=== PATIENT | female | born 1970 | race American Indian/Alaskan Native ===

== ENCOUNTER 2022-02-12 11:39 | Day surgery (SDC) | payer BC, OTHER ==
[~2022-02-12 11:39] MED LIST: Lactated Ringers 1,000 ML IV SCH
[2022-02-12] MEDS ORDERED: fentaNYL 100 MCG/2 ML SDV ONE (13:26)
[2022-02-12] MEDS ORDERED: Propofol 200 MG/20 ML SDV ONE (13:26)
== END 2022-02-12 14:45 | disposition home or self-care (01) ==
LOC: MW.SDS 11:39
PROVIDERS: ATTEND Surgery
DX: K59.00 Constipation, unspecified (principal); R19.5 Other fecal abnormalities; F32.A Depression, unspecified; I10 Essential (primary) hypertension; F17.210 Nicotine dependence, cigarettes, uncomplicated; E66.9 Obesity, unspecified; Z88.1 Allergy status to other antibiotic agents; Z88.2 Allergy status to sulfonamides; Z88.8 Allergy status to other drugs, medicaments and biological substances; Z68.34 Body mass index [BMI] 34.0-34.9, adult; Z79.899 Other long term (current) drug therapy
CPT/HCPCS: 45378; J2704; J3010; J7120